=== PATIENT | male | born 1985 | race Caucasian/White ===

== ENCOUNTER 2024-09-30 18:46 | Emergency (ER) | payer OTHER ==
[~2024-09-30] VITALS: Ht 190.5 cm; Wt 74.8 kg
[~2024-09-30 18:46] MED LIST: Acetaminophen650 M1 PO; BACL20 PO; BISA10S PR; DIAZ2 PO; DOCU100 PO; FAMO20 PO; MIRALAX17 GM PO; NICOTINE1 EAC1 TOP; Nortriptyline H50 MG PO; OLAN20 MM; PREG100 PO; Percocet 5-3251 EACH PO
[2024-09-30 21:34] LABS: BASOPHILS ABSOLUTE AUTO 0.04 K/mm3 (0.00-0.23); BASOPHILS PERCENT AUTO 0 % (0-2); EOSINOPHILS ABSOLUTE AUTO 0.08 K/mm3 (0.00-0.68); EOSINOPHILS PERCENT AUTO 1 % (0-6); Hematocrit 39.1 % (37.0-53.0); Hemoglobin 13.1 g/dL (13.5-17.5); IMMATURE GRAN ABSOLUTE AUTO 0.17 K/mm3 (0.00-0.10); IMMATURE GRAN PERCENT AUTO 2 % (0-1); LYMPHOCYTES ABSOLUTE AUTO 1.59 K/mm3 (0.84-5.20); LYMPHOCYTES PERCENT AUTO 15 % (21-46); MONOCYTES ABSOLUTE AUTO 1.23 K/mm3 (0.16-1.47); MONOCYTES PERCENT AUTO 11 % (4-13); Mean Corpuscular HGB 29.4 pg (26.0-34.0); Mean Corpuscular HGB Conc 33.5 g/dL (31.5-36.5); Mean Corpuscular Volume 88 fL (80-100); NEUTROPHILS ABSOLUTE AUTO 7.78 K/mm3 (1.96-9.15); NEUTROPHILS PERCENT AUTO 71 % (41-73); NRBC ABSOLUTE 0.02 K/mm3 (0.00-0.02); NRBC Auto 0.2 /100 WBC (0.0-0.2); RDW Coefficient Variation 13.5 % (11.7-14.2); RDW Standard Deviation 43.6 fL (35.1-46.3); Red Blood Cell Count 4.45 M/mm3 (4.30-5.90); White Blood Cell Count 10.89 K/mm3 (4.00-11.30)
[2024-09-30 21:43] LABS: Mean Platelet Volume 10.2 fL (9.1-12.4); Platelet Count 193 K/mm3 (150-400)
[2024-09-30 21:50] LABS: Albumin, Blood 2.9 g/dL (3.4-5.0); Albumin/Globulin Ratio 0.9 (0.8-1.8); Bilirubin, Total 0.6 mg/dL (0.1-1.0); Calcium, Blood 7.1 mg/dL (8.5-10.1); Creatinine, Blood 0.5 mg/dL (0.60-1.20); Globulin, Blood 3.1 g/dL (2.2-4.0); Potassium, Blood 4.4 mmol/L (3.5-5.5)
[2024-09-30 23:14] LABS: Source, Urine Clean Catch
[2024-09-30 23:18] LABS: Bilirubin, Urine Neg (Neg); Blood, Urine Neg (Neg); Glucose Qualitative, Urine Neg (Neg); Ketones, Urine Neg (Neg); Leukocyte Esterase, Urine Neg (Neg); Nitrite, Urine Neg (Neg); Protein, Urine Neg (Neg); Urobilinogen, Urine NORM (Normal)
[2024-09-30 23:19] LABS: Appearance, Urine Clear (Clear); Color, Urine Yellow (P-Yellow)
[2024-09-30] MEDS ORDERED: Morphine Sulfate 4 MG/1 ML Injection IV ONE (23:45)
[2024-09-30] MEDS ORDERED: Lactated Ringer's 1,000 ML IV ONE (23:45)
[2024-09-30] MEDS ORDERED: Ondansetron HCl 2 MG / ML 2ML Vial IV ONE (23:45)
[2024-10-01] MEDS ORDERED: MIRALAX17 GM PO (02:52)
[2024-10-01] MEDS ORDERED: ONDA4ODT MM (02:52)
== END 2024-10-01 03:03 | disposition home or self-care (01) ==
LOC: ER 18:46
PROVIDERS: Student in an Organized Health Care Education/Training Program
DX: K52.9 Noninfective gastroenteritis and colitis, unspecified (principal); K59.00 Constipation, unspecified; K21.9 Gastro-esophageal reflux disease without esophagitis; Z79.899 Other long term (current) drug therapy; Z88.5 Allergy status to narcotic agent; Z88.6 Allergy status to analgesic agent; Z88.8 Allergy status to other drugs, medicaments and biological substances
CPT/HCPCS: 74177; 76705; 76870; 80053; 81003; 85025; 96361; 96374-59; 96375; 99284-25; J2270; J2405; J7120; Q9967

== ENCOUNTER 2024-10-04 09:28 | Emergency (ER) | payer OTHER ==
[~2024-10-04] VITALS: Ht 182.9 cm; Wt 68.0 kg
[~2024-10-04 09:28] MED LIST changes: +ONDA4ODT MM
[2024-10-04] MEDS ORDERED: NS 1,000 ML IV SCH (10:10)
[2024-10-04] MEDS ORDERED: Ondansetron HCl 2 MG / ML 2ML Vial IV ONE (10:10)
[2024-10-04 10:26] LABS: Source, Urine Clean Catch
[2024-10-04 10:33] LABS: Appearance, Urine Clear (Clear); Blood, Urine Neg (Neg); Color, Urine Yellow (P-Yellow); Glucose Qualitative, Urine Neg (Neg); Ketones, Urine Neg (Neg); Leukocyte Esterase, Urine 1+ (Neg); Nitrite, Urine Neg (Neg); Protein, Urine 3+ (Neg); Specific Gravity, Urine 1.025 (1.003-1.022); Urobilinogen, Urine 1+ (Normal)
[2024-10-04 10:50] LABS: BASOPHILS ABSOLUTE AUTO 0.04 K/mm3 (0.00-0.23); BASOPHILS PERCENT AUTO 0 % (0-2); EOSINOPHILS ABSOLUTE AUTO 0.13 K/mm3 (0.00-0.68); EOSINOPHILS PERCENT AUTO 1 % (0-6); Hemoglobin 14.1 g/dL (13.5-17.5); IMMATURE GRAN ABSOLUTE AUTO 0.07 K/mm3 (0.00-0.10); IMMATURE GRAN PERCENT AUTO 1 % (0-1); LYMPHOCYTES ABSOLUTE AUTO 1.76 K/mm3 (0.84-5.20); LYMPHOCYTES PERCENT AUTO 15 % (21-46); MONOCYTES ABSOLUTE AUTO 0.88 K/mm3 (0.16-1.47); MONOCYTES PERCENT AUTO 7 % (4-13); Mean Corpuscular HGB 29.3 pg (26.0-34.0); Mean Corpuscular HGB Conc 33.6 g/dL (31.5-36.5); Mean Corpuscular Volume 87 fL (80-100); Mean Platelet Volume 10.1 fL (9.1-12.4); NEUTROPHILS ABSOLUTE AUTO 9.16 K/mm3 (1.96-9.15); NEUTROPHILS PERCENT AUTO 76 % (41-73); Platelet Count 255 K/mm3 (150-400); RDW Coefficient Variation 13.3 % (11.7-14.2); RDW Standard Deviation 42.1 fL (35.1-46.3); Red Blood Cell Count 4.82 M/mm3 (4.30-5.90); White Blood Cell Count 12.04 K/mm3 (4.00-11.30)
[2024-10-04 10:51] LABS: Bilirubin, Urine 1+ (Neg)
[2024-10-04 10:52] LABS: Bacteria Few /hpf; Mucus Light (0-Heavy); Red Blood Cells, Urine 0-2 /hpf (0-2); Squamous Epithelial Cells Few /hpf (Few)
[2024-10-04 11:07] LABS: Albumin, Blood 3.1 g/dL (3.4-5.0); Albumin/Globulin Ratio 0.8 (0.8-1.8); Bilirubin, Total 0.6 mg/dL (0.1-1.0); Bun/Creatinine Ratio 24.7 (12.0-20.0); Calcium, Blood 8.8 mg/dL (8.5-10.1); Creatinine, Blood 0.65 mg/dL (0.60-1.20); Potassium, Blood 4.1 mmol/L (3.5-5.5); Total Protein, Blood 7.1 g/dL (6.4-8.2)
[2024-10-04] MEDS ORDERED: ONDA4ODT MM (12:07)
== END 2024-10-04 12:15 | disposition home or self-care (01) ==
LOC: ER 09:28
PROVIDERS: Physician Assistant
DX: R11.2 Nausea with vomiting, unspecified (principal); R10.84 Generalized abdominal pain; K21.9 Gastro-esophageal reflux disease without esophagitis; Z88.5 Allergy status to narcotic agent; Z88.6 Allergy status to analgesic agent; Z88.8 Allergy status to other drugs, medicaments and biological substances; Z79.899 Other long term (current) drug therapy; G35 Multiple sclerosis; Z59.89 Other problems related to housing and economic circumstances
CPT/HCPCS: 80053; 81001; 83690; 85025; 87086; 96361; 96374; 99283-25; J2405; J7030

== ENCOUNTER 2024-10-07 16:32 | Emergency (ER) | payer OTHER ==
[~2024-10-07] VITALS: Ht 182.9 cm; Wt 68.0 kg
[2024-10-07 16:53] LABS: BASOPHILS PERCENT AUTO 1 % (0-2); EOSINOPHILS PERCENT AUTO 2 % (0-6); Hemoglobin 14.1 g/dL (13.5-17.5); IMMATURE GRAN ABSOLUTE AUTO 0.25 K/mm3 (0.00-0.10); IMMATURE GRAN PERCENT AUTO 2 % (0-1); LYMPHOCYTES ABSOLUTE AUTO 2.11 K/mm3 (0.84-5.20); LYMPHOCYTES PERCENT AUTO 17 % (21-46); MONOCYTES ABSOLUTE AUTO 1.03 K/mm3 (0.16-1.47); MONOCYTES PERCENT AUTO 8 % (4-13); Mean Corpuscular HGB 29.2 pg (26.0-34.0); Mean Corpuscular HGB Conc 33.6 g/dL (31.5-36.5); Mean Corpuscular Volume 87 fL (80-100); Mean Platelet Volume 9.6 fL (9.1-12.4); NEUTROPHILS PERCENT AUTO 70 % (41-73); Platelet Count 313 K/mm3 (150-400); RDW Coefficient Variation 13.2 % (11.7-14.2); RDW Standard Deviation 41.9 fL (35.1-46.3); Red Blood Cell Count 4.83 M/mm3 (4.30-5.90); White Blood Cell Count 12.19 K/mm3 (4.00-11.30)
[2024-10-07 17:17] LABS: Albumin, Blood 3.4 g/dL (3.4-5.0); Albumin/Globulin Ratio 0.8 (0.8-1.8); Bilirubin, Total 0.6 mg/dL (0.1-1.0); Bun/Creatinine Ratio 24.6 (12.0-20.0); Calcium, Blood 8.5 mg/dL (8.5-10.1); Creatinine, Blood 0.61 mg/dL (0.60-1.20); Potassium, Blood 3.7 mmol/L (3.5-5.5); Total Protein, Blood 7.4 g/dL (6.4-8.2)
[2024-10-07] MEDS ORDERED: NS 1,000 ML IV SCH (17:50)
[2024-10-07] MEDS ORDERED: Droperidol 5 mg/2 ml Vial IV ONE (17:50)
[2024-10-07 17:58] LABS: Magnesium, Blood 2.1 mg/dL (1.6-2.4)
[2024-10-07] MEDS ORDERED: Capsaicin 0.025% Cream TOP ONE (18:15)
[2024-10-07] MEDS ORDERED: METO10 PO (23:54)
[2024-10-08] MEDS ORDERED: DICY20 PO (05:21)
== END 2024-10-07 19:02 | disposition left against medical advice (07) ==
LOC: ER 16:32
PROVIDERS: Emergency Medicine; Student in an Organized Health Care Education/Training Program
DX: R10.31 Right lower quadrant pain (principal); R11.2 Nausea with vomiting, unspecified; R19.7 Diarrhea, unspecified; G35 Multiple sclerosis; G43.909 Migraine, unspecified, not intractable, without status migrainosus; F17.210 Nicotine dependence, cigarettes, uncomplicated; F12.90 Cannabis use, unspecified, uncomplicated; Z53.29 Procedure and treatment not carried out because of patient's decision for other reasons; Z79.899 Other long term (current) drug therapy; Z88.6 Allergy status to analgesic agent; Z88.5 Allergy status to narcotic agent; Z88.8 Allergy status to other drugs, medicaments and biological substances
CPT/HCPCS: 74177; 80053; 83690; 83735; 85025; 93005; 93010; 96361; 96374; 96374-59; 99284-25; A9270; J1790; J7030; Q9967

== ENCOUNTER 2024-10-07 21:07 | Emergency (ER) | payer OTHER ==
[~2024-10-07] VITALS: Ht 182.9 cm; Wt 63.5 kg
[2024-10-07] MEDS ORDERED: Droperidol 5 mg/2 ml Vial IV ONE (23:50)
[2024-10-07] MEDS ORDERED: METO10 PO (23:54)
[2024-10-08] MEDS ORDERED: DICY20 PO (05:21)
== END 2024-10-07 23:55 | disposition home or self-care (01) ==
LOC: ER 21:07
DX: R10.31 Right lower quadrant pain (principal); R11.2 Nausea with vomiting, unspecified; F12.90 Cannabis use, unspecified, uncomplicated; Z88.5 Allergy status to narcotic agent; Z88.6 Allergy status to analgesic agent; Z79.899 Other long term (current) drug therapy
CPT/HCPCS: 74177; 96374-59; 99284-25; J1790; Q9967

== ENCOUNTER 2024-10-08 02:18 | Emergency (ER) | payer OTHER ==
[~2024-10-08] VITALS: Ht 182.9 cm; Wt 63.5 kg
[~2024-10-08 02:18] MED LIST changes: +METO10 PO
[2024-10-08] MEDS ORDERED: DICY20 PO (05:21)
== END 2024-10-08 05:35 | disposition home or self-care (01) ==
LOC: ER 02:18
DX: K52.9 Noninfective gastroenteritis and colitis, unspecified (principal); Z76.5 Malingerer [conscious simulation]; K21.9 Gastro-esophageal reflux disease without esophagitis; G43.909 Migraine, unspecified, not intractable, without status migrainosus; Z79.899 Other long term (current) drug therapy; Z88.5 Allergy status to narcotic agent; Z88.6 Allergy status to analgesic agent; Z88.8 Allergy status to other drugs, medicaments and biological substances
CPT/HCPCS: 99282

== ENCOUNTER → 2024-10-15 | Outpatient (CLI) | payer OTHER ==
[~2024-10-15] MED LIST changes: +DICY20 PO
== END | disposition home or self-care (01) ==
LOC: LAB 17:03 → LAB SHORT 17:03
DX: N39.41 Urge incontinence (principal); R30.0 Dysuria
CPT/HCPCS: 87086

== ENCOUNTER 2025-03-06 19:00 | Emergency (ER) | payer OTHER ==
[~2025-03-06] VITALS: Ht 182.9 cm; Wt 68.0 kg
[2025-03-06] MEDS ORDERED: Acetaminophen 500 MG Tab PO ONE (19:10)
[2025-03-06] MEDS ORDERED: Dexamethasone Sod Phos 10 MG/ML 1ML VIAL PO ONE (19:15)
[2025-03-06] MEDS ORDERED: Metoclopramide HCl 10 MG Tab PO ONE (19:15)
[2025-03-06] MEDS ORDERED: DiphenhydrAMINE HCL 25 MG Cap PO ONE (19:15)
[2025-03-06] MEDS ORDERED: NS 1,000 ML IV SCH (20:20)
[2025-03-06] MEDS ORDERED: Prochlorperazine Edisylate 10 mg Vial IV ONE (20:20)
[2025-03-06 21:03] LABS: BASOPHILS ABSOLUTE AUTO 0.04 K/mm3 (0.00-0.23); BASOPHILS PERCENT AUTO 1 % (0-2); EOSINOPHILS ABSOLUTE AUTO 0.21 K/mm3 (0.00-0.68); EOSINOPHILS PERCENT AUTO 3 % (0-6); Hematocrit 39.2 % (37.0-53.0); Hemoglobin 13.3 g/dL (13.5-17.5); IMMATURE GRAN ABSOLUTE AUTO 0.04 K/mm3 (0.00-0.10); IMMATURE GRAN PERCENT AUTO 1 % (0-1); LYMPHOCYTES ABSOLUTE AUTO 2.47 K/mm3 (0.84-5.20); LYMPHOCYTES PERCENT AUTO 30 % (21-46); MONOCYTES ABSOLUTE AUTO 0.52 K/mm3 (0.16-1.47); MONOCYTES PERCENT AUTO 6 % (4-13); Mean Corpuscular HGB 28.7 pg (26.0-34.0); Mean Corpuscular HGB Conc 33.9 g/dL (31.5-36.5); Mean Corpuscular Volume 85 fL (80-100); Mean Platelet Volume 9.6 fL (9.1-12.4); NEUTROPHILS ABSOLUTE AUTO 4.94 K/mm3 (1.96-9.15); NEUTROPHILS PERCENT AUTO 60 % (41-73); Platelet Count 235 K/mm3 (150-400); RDW Coefficient Variation 13.9 % (11.7-14.2); RDW Standard Deviation 42.6 fL (35.1-46.3); Red Blood Cell Count 4.63 M/mm3 (4.30-5.90); White Blood Cell Count 8.22 K/mm3 (4.00-11.30)
[2025-03-06 21:21] LABS: Albumin, Blood 3.4 g/dL (3.4-5.0); Albumin/Globulin Ratio 1.1 (0.8-1.8); Bilirubin, Total 0.7 mg/dL (0.1-1.0); Bun/Creatinine Ratio 16.6 (12.0-20.0); Calcium, Blood 8.9 mg/dL (8.5-10.1); Creatinine, Blood 0.72 mg/dL (0.60-1.20); Globulin, Blood 3.2 g/dL (2.2-4.0); Potassium, Blood 3.7 mmol/L (3.5-5.5); Total Protein, Blood 6.6 g/dL (6.4-8.2)
== END 2025-03-06 22:25 | disposition home or self-care (01) ==
LOC: ER 19:00
PROVIDERS: Emergency Medicine
DX: N50.811 Right testicular pain (principal); R51.9 Headache, unspecified; Z53.21 Procedure and treatment not carried out due to patient leaving prior to being seen by health care provider
CPT/HCPCS: 76870; 80053; 83690; 85025; 96374; 99284-25; A9270; J0780; J1100; J7030